=== PATIENT | female | born 2000 | race Caucasian/White ===

== ENCOUNTER 2020-10-09 04:21 | Emergency (ER) | payer BC, SELFPAY ==
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
[2020-10-09 04:28] VITALS: BP 124/92; PULSE 83; RESP 16; TEMP 36.6; O2SAT 98
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
--- NOTE | 2020-10-09 04:58 | PC.NURSE ---
ISP here to speak with patient. DUI kit drawn per their request and patients consent per protocol.
[2020-10-09 05:32] LABS: Chloride 110 mmol/L (98-107)
--- NOTE | 2020-10-09 05:35 | PC.NURSE ---
[email or web address]
[2020-10-09 05:51] LABS: Anion Gap 11 mmol/L (8-16); Blood Urea Nitrogen 6 mg/dL (7-17); Calcium 9.1 mg/dL (8.4-10.2); Carbon Dioxide 21 mmol/L (22-30); Estimated CRCL calculation 108 ml/min; Estimated Glomerular Filt Rate > 60; Glucose 98 mg/dL (65-105); Potassium 3.7 mmol/L (3.4-5.0); Sodium 142 mmol/L (137-145)
[2020-10-09 05:58] LABS: Ethanol 166 mg/dL (<10)
--- NOTE | 2020-10-09 05:59 | PC.NURSE ---
tried to call report to let them know patient would be returning, however the phone just rings and finally hangs up with a busy signal.
[2020-10-09] MEDS: ACETAMINOPHEN 325 MG TABLET 650 MG PO (06:02)
[2020-10-09] MEDS: KETOROLAC 30 MG/ML VIAL (*BKC) IV PUSH (06:19)
[2020-10-09 06:37] VITALS: BP 115/73; PULSE 83; RESP 16; TEMP 36.6; O2SAT 98
== END 2020-10-09 06:38 | disposition home or self-care (01) ==
PROVIDERS: Emergency Provider Emergency Medicine; PCP Internal Medicine
DX: S39.012A Strain of muscle, fascia and tendon of lower back, initial encounter (principal); S46.912A Strain of unspecified muscle, fascia and tendon at shoulder and upper arm level, left arm, initial encounter; V43.52XA Car driver injured in collision with other type car in traffic accident, initial encounter
CPT/HCPCS: 36415; 70450; 71260; 72125; 73080; 74177; 80048; 80307; 81025; 96374; 99284; A9270; J1885; Q9967

== ENCOUNTER 2024-03-15 12:37 | Outpatient (CLI) | payer BC, SELFPAY ==
[2024-03-15 13:04] LABS: Basophils Absolute Auto 0.1 K/mm3 (0.0-0.1); Basophils Percent Auto 0.9 % (0.2-1.2); Eosinophils Absolute Auto 0.1 K/mm3 (0-0.3); Eosinophils Percent Auto 1.9 % (0-4.4); Hematocrit 39.6 % (37.0-47.0); Hemoglobin 13.4 g/dL (12.0-15.0); Immature Granulocyte Absolute 0.03 K/mm3 (0.00-0.031); Immature Granulocyte Percent A 0.4 % (0-0.5); Lymphocytes Absolute Auto 1.61 K/mm3 (0.9-3.2); Lymphocytes Percent Auto 23.4 % (18.3-44.2); Mean Corpuscular HGB Conc 33.8 g/dl (32-36); Mean Corpuscular Hemoglobin 31.5 pg (26-34); Mean Corpuscular Volume 93.2 fl (80-100); Mean Platelet Volume 9.5 fl (7.4-10.4); Monocytes Absolute Auto 0.7 K/mm3 (0.1-0.6); Monocytes Percent Auto 9.6 % (2.6-8.5); Neutrophils Absolute Auto 4.4 K/mm3 (1.3-6.7); Neutrophils Percent Auto 63.8 % (45.5-73.1); Platelet Count Result 222 k/mm3 (150-375); Red Blood Count 4.25 M/mm3 (4.2-5.4); Red Cell Distribution Width 14.4 % (11.5-14.5); White Blood Count 6.9 K/mm3 (4.5-10.0)
[2024-03-15 13:07] LABS: Appearance Urine Clear (Clear); Bilirubin Urine Negative (Negative); Blood Urine Negative (Negative); Color Urine Yellow (Yellow); Glucose Urine UA Negative (Negative); Ketones Urine Negative (Negative); Leukocyte Esterase Ur Negative LEU/UL (Negative); Nitrate Urine Negative (Negative); Protein Urine Negative (Negative); Specific Grav Ur 1.018 (1.001-1.035)
[2024-03-15 13:17] LABS: Add Urine Microscopic? NO
[2024-03-15 14:04] LABS: HIV 1/2 Ab P24 Ag Result Negative (Negative)
[2024-03-15 14:11] LABS: Hepatitis B Surface Antigen Negative (Negative); Rubella IgG Antibody 8.4 IU/ML
[2024-03-15 14:27] LABS: Hepatitis C Virus Antibody Negative (Negative)
[2024-03-16 11:18] LABS: Rapid Plasma Reagin Non-Reactive (NonReactive)
== END 2024-03-15 12:38 | disposition home or self-care (01) ==
LOC: ANHLAB 12:39
PROVIDERS: PCP Internal Medicine; Visit Provider Nurse Practitioner Obstetrics & Gynecology
DX: Z34.90 Encounter for supervision of normal pregnancy, unspecified, unspecified trimester (principal)
CPT/HCPCS: 36415; 81003; 85025; 86592; 86703; 86762; 86787; 86803; 86850; 86900; 86901; 87086; 87340; G0432

== ENCOUNTER 2024-05-09 11:14 | Outpatient (CLI) | payer BC, MEDICAID, SELFPAY ==
[2024-05-09 12:45] LABS: Basophils Percent Auto 0.3 % (0.2-1.2); Eosinophils Absolute Auto 0.2 K/mm3 (0-0.3); Hematocrit 35.5 % (37.0-47.0); Hemoglobin 11.7 g/dL (12.0-15.0); Immature Granulocyte Absolute 0.04 K/mm3 (0.00-0.031); Immature Granulocyte Percent A 0.5 % (0-0.5); Lymphocytes Absolute Auto 1.27 K/mm3 (0.9-3.2); Lymphocytes Percent Auto 16.9 % (18.3-44.2); Mean Corpuscular Hemoglobin 31.5 pg (26-34); Mean Corpuscular Volume 95.4 fl (80-100); Mean Platelet Volume 9.9 fl (7.4-10.4); Monocytes Absolute Auto 0.7 K/mm3 (0.1-0.6); Monocytes Percent Auto 9.5 % (2.6-8.5); Neutrophils Absolute Auto 5.3 K/mm3 (1.3-6.7); Neutrophils Percent Auto 70.8 % (45.5-73.1); Platelet Count Result 208 k/mm3 (150-375); Red Blood Count 3.72 M/mm3 (4.2-5.4); Red Cell Distribution Width 13.3 % (11.5-14.5); White Blood Count 7.5 K/mm3 (4.5-10.0)
[2024-05-09 12:57] LABS: Glucose 1 Hour PP 50gm Dose 82 mg/dL
== END 2024-05-09 11:15 | disposition home or self-care (01) ==
LOC: ANHLAB 11:17
PROVIDERS: PCP Internal Medicine; Visit Provider Nurse Practitioner Obstetrics & Gynecology
DX: Z34.90 Encounter for supervision of normal pregnancy, unspecified, unspecified trimester (principal)
CPT/HCPCS: 36415; 82947; 85025

== ENCOUNTER 2024-06-20 09:03 | Outpatient (CLI) | payer BC, MEDICAID, SELFPAY ==
[2024-06-20 09:28] LABS: Basophils Percent Auto 0.4 % (0.2-1.2); Eosinophils Absolute Auto 0.1 K/mm3 (0-0.3); Eosinophils Percent Auto 1.2 % (0-4.4); Hematocrit 35.1 % (37.0-47.0); Hemoglobin 11.7 g/dL (12.0-15.0); Immature Granulocyte Absolute 0.05 K/mm3 (0.00-0.031); Immature Granulocyte Percent A 0.5 % (0-0.5); Lymphocytes Absolute Auto 1.78 K/mm3 (0.9-3.2); Lymphocytes Percent Auto 17.2 % (18.3-44.2); Mean Corpuscular HGB Conc 33.3 g/dl (32-36); Mean Corpuscular Hemoglobin 30.2 pg (26-34); Mean Corpuscular Volume 90.7 fl (80-100); Mean Platelet Volume 10.2 fl (7.4-10.4); Monocytes Absolute Auto 0.8 K/mm3 (0.1-0.6); Neutrophils Absolute Auto 7.5 K/mm3 (1.3-6.7); Neutrophils Percent Auto 72.7 % (45.5-73.1); Platelet Count Result 193 k/mm3 (150-375); Red Blood Count 3.87 M/mm3 (4.2-5.4); Red Cell Distribution Width 13.6 % (11.5-14.5); White Blood Count 10.3 K/mm3 (4.5-10.0)
[2024-06-20 17:32] LABS: HIV 1/2 Ab P24 Ag Result Negative (Negative)
[2024-06-21 10:21] LABS: Rapid Plasma Reagin Non-Reactive (NonReactive)
== END 2024-06-20 09:04 | disposition home or self-care (01) ==
LOC: ANHLAB 09:08
PROVIDERS: PCP Internal Medicine; Visit Provider Nurse Practitioner Obstetrics & Gynecology
DX: Z34.90 Encounter for supervision of normal pregnancy, unspecified, unspecified trimester (principal)
CPT/HCPCS: 36415; 85025; 86592; 86703; G0432

== ENCOUNTER 2024-08-09 07:58 | Inpatient (IN) | payer BC, MEDICAID, SELFPAY ==
[2024-08-09] VITALS (129 sets, daily range): BP systolic 109–156; BP diastolic 38–116; PULSE 64–173; RESP 18; TEMP 36.5–37; O2SAT 93–100
[2024-08-09 08:51] LABS: Basophils Absolute Auto 0.1 K/mm3 (0.0-0.1); Basophils Percent Auto 0.6 % (0.2-1.2); Eosinophils Absolute Auto 0.1 K/mm3 (0-0.3); Eosinophils Percent Auto 0.8 % (0-4.4); Hematocrit 35.9 % (37.0-47.0); Immature Granulocyte Absolute 0.06 K/mm3 (0.00-0.031); Immature Granulocyte Percent A 0.5 % (0-0.5); Lymphocytes Absolute Auto 3.55 K/mm3 (0.9-3.2); Lymphocytes Percent Auto 30.8 % (18.3-44.2); Mean Corpuscular HGB Conc 33.4 g/dl (32-36); Mean Corpuscular Hemoglobin 29.7 pg (26-34); Mean Corpuscular Volume 88.9 fl (80-100); Mean Platelet Volume 10.8 fl (7.4-10.4); Monocytes Absolute Auto 0.7 K/mm3 (0.1-0.6); Neutrophils Absolute Auto 7.1 K/mm3 (1.3-6.7); Neutrophils Percent Auto 61.3 % (45.5-73.1); Platelet Count Result 213 k/mm3 (150-375); Red Blood Count 4.04 M/mm3 (4.2-5.4); White Blood Count 11.5 K/mm3 (4.5-10.0)
[2024-08-09] MEDS: LACTATED RINGERS 1,000 ML 125 ML IV CONT ×3 (09:03→10:56)
--- NOTE | 2024-08-09 09:36 | WPDANESEPP ---
Anes - Eval Pre Procedure Procedure: Labor Epidural Date/Time: 08/09/24 09:36 Surgeon: Hailey Preop Diagnosis: Pain during labor Pre Op Diagnosis: Labor Patient Data Age: 24 Gender: F Height: Weight: Last Vital Signs Pulse 109 H 08/09/24 09:30 BP 156/96 H 08/09/24 09:30 Allergies Allergy/AdvReac Type Severity Reaction Status Date / Time No Known Drug Allergies AdvReac na Verified 08/08/24 14:59 Home Medications Medication Instructions Recorded Confirmed Type vit no.116-iron 28 1 cap PO DAILY #90 caps 06/08/24 07/31/24 Rx mg-folic acid 800 mcg-dha 200 mg capsule ( Formula-DHA) Laboratory Tests 08/09/24 08:39 WBC 11.5 H K/mm3 (4.5-10.0) RBC 4.04 L M/mm3 (4.2-5.4) Hgb 12.0 g/dL (12.0-15.0) Hct 35.9 L % (37.0-47.0) MCV 88.9 fl (80-100) MCH 29.7 pg (26-34) MCHC 33.4 g/dl (32-36) RDW 16.0 H % (11.5-14.5) Plt Count 213 k/mm3 (150-375) MPV 10.8 H fl (7.4-10.4) Immature Gran % (Auto) 0.5 % (0-0.5) Neut % (Auto) 61.3 % (45.5-73.1) Lymph % (Auto) 30.8 % (18.3-44.2) [place] % (Auto) 6.0 % (2.6-8.5) Eos % (Auto) 0.8 % (0-4.4) Baso % (Auto) 0.6 % (0.2-1.2) Lymph # (Auto) 3.55 H K/mm3 (0.9-3.2) [place] # (Auto) 0.7 H K/mm3 (0.1-0.6) Eos # (Auto) 0.1 K/mm3 (0-0.3) Baso # (Auto) 0.1 K/mm3 (0.0-0.1) Abs Immat Gran (auto) 0.06 H K/mm3 (0.00-0.031) Absolute Neuts (auto) 7.1 H K/mm3 (1.3-6.7) Absolute Nucleated RBC 0.000 K/mm3 (0.0-0.012) Nucleated RBC % 0.0 % (0.0-0.2) RPR Pending HIV 1&2 Ab/P24 Ag 4thGn Pending Blood Type A Positive Antibody Screen Pending Patient hx anesthesia problems: none Family hx anesthesia problems: none Results Review: All pre-operative results and documents have been reviewed as part of the pre-operative evaluation. COUNT INCLUDES THE [facility] Past Medical History Medical History Personal history of congenital hip dysplasia Family History Family History Father Asthma Mother Asthma Grandparent Depression Breast cancer Social History Social History Smoking status: Never smoker Alcohol intake: never Substance use: never Spiritual care concerns: No Exam Day of Procedure 08/09/24 09:36 Patient weight: normal Heart: regular rate and rhythm Lungs: normal air movement Airway: Mallampati scale class II Neurological: alert and oriented
[2024-08-09 09:40] LABS: HIV 1/2 Ab P24 Ag Result Negative (Negative)
[2024-08-09 10:01] LABS: Rapid Plasma Reagin Non-Reactive (NonReactive)
[2024-08-09] MEDS: OXYTOCIN 30 UNITS/NS 500 ML 30 UNITS/500 ML BAG IV CONT (15:45)
[2024-08-09] MEDS: ONDANSETRON INJ 4 MG/2 ML VIAL IV PUSH (17:05)
[2024-08-09] MEDS: OXYTOCIN 30 UNITS/NS 500 ML 30 UNITS/500 ML BAG 125 UNITS IV CONT (17:11)
--- NOTE | 2024-08-09 18:56 | OBPPTRN ---
Patient transferred to post room #281 via w/c. Support person present. Oriented to unit, room, information board, rooming in, admission packet and security measures. Patient verbalizes understanding.
[2024-08-10] VITALS: BP 125/69; PULSE 75; RESP 18; TEMP 36.9
[2024-08-10 05:18] LABS: Hematocrit 31.8 % (37.0-47.0); Hemoglobin 10.6 g/dL (12.0-15.0)
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
--- NOTE | 2024-08-10 07:08 | PM.OBPRVD ---
OB - Vaginal Delivery Note Procedure Delivery date: 08/10/24 Delivery augmentation: Pitocin Route of delivery: Episiotomy description: None Laceration Description: Labial (inner labial and small vaginal at introitus, no suture needed) Specimen: No Quantitative Blood Loss (ml): 150 Anesthesia type: Epidural Disposition: Floor Complications: No immediate complications Narrative: She was admitted in labor. She had epidural placed on request. She continued to progress in labor. Labor slowed at 9cm, she was examined and was OP, Pitocin was started and she was repositioned and then had urge to push after 10 minuters. She was complete. She pushed several times and delivered a female infant. Infant vigorously crying on delivery and nose and mouth suctioned on perineum. The shoulder and the rest of delivered with patient in Sara position. Infant placed on maternal abdomen. Delayed cord clamped. Placenta delivered spontaneous and intact. She sustained small bilateral labial superior inner minora lacerations , and small at introitus, no suture needed. She tolerated procedure well. [place] Baby Date of : 08/09/24 Time of : 16:35 Gestational Age by Date: 39 gender: Female Weight (pounds): 7 Weight (ounces): 3 presentation: vertex Placenta delivery description: Spontaneous Cord Vessel Description: 3 Vessels score one minute: 8 score five minutes: 9
[2024-08-10 07:30] VITALS: BP 122/73; PULSE 80; RESP 16; TEMP 37.3; O2SAT 100
--- NOTE | 2024-08-10 08:10 | PC.NURSE ---
Introductions were made, then consulted with patient to assess needs related to . Mother led the conversation with her?plans to feed?her and the?experience so far. Pumping was initiated overnight because infant was too sleepy to latch. She was able to pump 15cc of colostrum and give this to infant with her last feeding. Mother has inverted and flat nipples so a nipple shield was also introduced overnight. Mother is using her own pump from home and is currently in her correct size flange. She denies pain or discomfort when pumping. Encouraged understanding of the benefits of skin to skin (demonstrating unwrapping infant and placing upright on her chest), stimulating with massage touch, changing positions to encourage wakefulness, how to watch for early feeding cues, responsive feeding, feeding on demand (aiming for 8-12 times in 24 hours, about every 2-3 hours), milk production, building/maintaining a milk supply, duration of feeding, signs of adequate intake/output and how to record on the feeding sheet. Mother works well with her and needs only minimal assistance with positioning infant for feedings. Reviewed positioning and ear, shoulder, hip alignment, supporting the breast to facilitate a deep latch, asymmetrical latch (off-center), leading with the chin with a big, open, wide gape and body close to mother. latched to the [left] breast in [football] position with nipple shield in place. would only suckle 2-3 times and push the nipple shield out of her mouth. Mother is able to redirect infant to the breast and relatch her. The 2-3 suckles and pushing out the nipple shield happened a few times while I was observing this feeding. Infant then fell asleep. Encouraged mother to wake and continue attempting to nurse . Mother will pump and feed if she is unable to maintain a latch and has stated that she doesnt care how the baby eats as long as she is fed . Communication board was updated and mother knows to call if she needs further education or any assistance with feeding . Reported to the Primary RN.
[2024-08-10] MEDS: DOCUSATE SODIUM 100 MG CAPSULE PO (08:27)
[2024-08-10] MEDS: MULTIVIT/MIN/PREN/FOL AC/IRON TABLET 1 TAB PO (08:27)
[2024-08-10] MEDS: IBUPROFEN 600 MG TABLET PO ×2 (08:27→19:05)
--- NOTE | 2024-08-10 11:07 | PM.OBPNVD ---
OB - PN: Subj Subjective Date/time seen: 08/10/24 0800 Patient comments: pain well controlled, tolerating diet and other (Decreasing lochia.) baby status: doing well and nursing well [place] feeding status: breast and bottle feeding Narrative: Doing well. taking motrin as needed for pain. Bleeding has been very light. at bedside- working with nipple shield. doing. Sleepy while trying to nurse. OB - PN: Obj Data Labs 08/10/24 05:11 Labs: Laboratory Results - last 24 hr 08/10/24 05:11 Hgb 10.6 L Hct 31.8 L OB - PN A/P Assessment and Plan (1) Labor without complication: Code(s): O80 - Encounter for full-term uncomplicated delivery Status: Acute Plan routine pp care. continue . motrin as needed for pain. Plan day: 1 Plan: routine care Time Spent With Patient Time: Total time spent is greater than 50% in coordination of care (as documented) at patient's floor/unit and/or counseling patient: Review of Systems Constitutional: Constitutional: Reports no additional constitutional complaints Gastrointestinal: Gastrointestinal: Reports no additional gastrointestinal complaints Genitourinary: Genitourinary: Reports no additional female genitourinary complaints Neurologic: Reports system reviewed and no additional complaints, except as documented Exam Const: General: cooperative, healthy appearing, comfortable and no acute distress HENMT: Head: normal to inspection Eyes: General: appearance normal, both eyes and all related structures Chest: Breast/axilla inspection: normal inspection of the breasts Resp: Effort & Inspection: normal respiratory effort and able to speak in complete sentences Auscultation: clear to auscultation bilaterally Cardio: Rate: regular rate Rhythm: regular rhythm GI: Inspection: normal to inspection : Other: fundus firm and below umbilicus perineum intact light lochia Skin: General skin exam: normal color and no rashes or lesions noted Neuro: General: oriented to person, oriented to place and oriented to time Extrem: General: capillary refill normal and no calf tenderness Psych: Affect: normal affect Other: Abd: fundus firm below umbilicus, nontender Perineum: healing Ext: nontender
[2024-08-10 12:00] VITALS: BP 121/70; PULSE 75; RESP 16; TEMP 37; O2SAT 99
--- NOTE | 2024-08-10 15:03 | PM.OBDSVD ---
DS: Admitting Diagnosis Discharge Date 08/11/24 Admitting Diagnosis Active labor DS: Discharge Diagnosis Discharge Diagnosis (1) Labor without complication: Code(s): O80 - Encounter for full-term uncomplicated delivery Status: Acute (2) Vaginal delivery: Code(s): O80 - Encounter for full-term uncomplicated delivery Status: Acute OB - DS: Summary Hospital Course Hospital Course: She was admitted in active labor. She had an uncomplicated vaginal delivery. She did well . She had adequate pain control and ambulating well prior to delivery. Baby girl was doing well. OB Procedures : Ultrasound OB Procedures Intrapartum: Spontaneous Vag Delivery OB Procedures: : None Peripartum Data Delivery Method: Natural Vaginal Laceration Description: Labial (inner labial and small vaginal at introitus, no suture needed) Episiotomy description: None complications: none Status at Discharge Functional status at discharge: independent ambulation Time Spent with Patient Time attestation: Total time spent providing and/or coordinating discharge services: Exam Const: General: cooperative Orientation/consciousness: oriented to person, oriented to place and oriented to time HENMT: Face/Nose/Sinus: Normal external nose present Eyes: General: appearance normal, both eyes and all related structures Resp: Effort & Inspection: normal respiratory effort GI: Inspection: normal to inspection Skin: General skin exam: normal color Neuro: General: oriented to person, oriented to place and oriented to time Extrem: General: normal to inspection and no calf tenderness Psych: Appearance: grossly normal Mental Status: mental status grossly normal DS: Data Data Completed and Pending Labs on day of discharge: Labs from last 24 hours 08/10/24 05:11 Hgb 10.6 L Hct 31.8 L Discharge Plan Discharge Attending physician on discharge: Vlad Hart Consulting providers: Garrick Denis Discharging Clinician: Vlad Hart Patient Disposition: Home, Self-Care Activity: may shower, no driving and pelvic rest Diet: regular Patient Instructions: Antibiotic Form Stand Alone Forms: General Discharge Information Follow-up/Referrals: Vlad Hart MD [Physician] - 4 Weeks (Call for appointment.) Discharge Medications: No Action Formula-DHA 28 mg-800 mcg- 200 mg capsule 1 cap PO DAILY Qty: 90 1RF Date of admission: 08/09/24 07:58 Primary Care Provider: PHYSICIAN NOT ON STAFF,NONSTAFF Admitting Provider: Vlad Hart Attending physician on admission: Vlad Hart Condition: Stable
[2024-08-10 19:00] VITALS: BP 136/82; PULSE 80; RESP 18; TEMP 36.8; O2SAT 100
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
[2024-08-11 07:30] VITALS: BP 140/83; PULSE 70; RESP 16; TEMP 36.6; O2SAT 100
[2024-08-11] MEDS: MULTIVIT/MIN/PREN/FOL AC/IRON TABLET 1 TAB PO (07:47)
[2024-08-11] MEDS: MEASLES,MUMPS,RUBELLA VACCINE 0.5 ML VIAL SUB-Q (07:48)
--- NOTE | 2024-08-11 08:56 | PM.OBDSVD ---
DS: Admitting Diagnosis Discharge Date 08/11/2024 Admitting Diagnosis DS: Discharge Diagnosis Discharge Diagnosis (1) , delivered: Code(s): O80 - Encounter for full-term uncomplicated delivery Status: Acute OB - DS: Summary Hospital Course Hospital Course: She was admitted in active labor. She had an uncomplicated vaginal delivery. She did well . She had adequate pain control and ambulating well prior to delivery. Baby girl was doing well. OB Procedures : None OB Procedures Intrapartum: Spontaneous Vag Delivery OB Procedures: : None Peripartum Data Laceration Description: Labial (inner labial and small vaginal at introitus, no suture needed) Episiotomy description: None Time Spent with Patient Time attestation: Total time spent providing and/or coordinating discharge services: Discharge Plan Discharge Attending physician on discharge: Vlad Hart Consulting providers: Garrick Denis Discharging Clinician: Vlad Hart Patient Disposition: Home, Self-Care Activity: may shower, no driving and pelvic rest Diet: regular Patient Instructions: Antibiotic Form Stand Alone Forms: General Discharge Information Follow-up/Referrals: Vlad Hart MD [Physician] - 4 Weeks (Call for appointment.) Discharge Medications: New ibuprofen 600 mg Tablet 600 mg PO Q6H PRN (Reason: Cramping) Qty: 30 0RF Continued Formula-DHA 28 mg-800 mcg- 200 mg capsule 1 cap PO DAILY Qty: 90 1RF Date of admission: 08/09/24 07:58 Primary Care Provider: PHYSICIAN NOT ON STAFF,NONSTAFF Admitting Provider: Vlad Hart Attending physician on admission: Vlad Hart Condition: Stable
--- NOTE | 2024-08-11 09:31 | PC.NURSE ---
Patient instructed on viewing the discharge video Mother & Baby Care, The First Two Weeks . Patient was given the opportunity and encouraged to ask questions. Patient verbalized understanding of information shared and has been given the mother/baby guide for home reference.
--- NOTE | 2024-08-11 09:40 | PC.NURSE ---
Mother is attempting to put to breast with each feeding, her attempts have been unsuccessful but she does not appear to be discouraged and explains that she will continue trying at each feeding. Mother is pumping and expressing 10-15cc at each pumping session and able to feed this to infant. Mother is satisfied with her plan to pump and feed infant and continue her attempts to latch . Communication board updated.
[2024-08-11 11:45] VITALS: BP 142/88; PULSE 88
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
[2024-08-13 08:30] VITALS: BP 129/76; PULSE 81; RESP 18; TEMP 36.7; O2SAT 100
== END 2024-08-11 16:48 | disposition home or self-care (01) | DRG 807 ==
LOC: ANHOB2 08-11 09:45 → ANHLDR 08-13 13:49 → ANHOB2 08-13 13:49
PROVIDERS: Admitting Provider Obstetrics & Gynecology; Visit Provider Obstetrics & Gynecology
DX: O70.0 First degree perineal laceration during delivery (principal); Z37.0 Single live birth; Z3A.39 39 weeks gestation of pregnancy
CPT/HCPCS: 36415; 85014; 85018; 85025; 86592; 86703; 86850; 86900; 86901; 90710; A9270; G0432; J2405; J2590; J2795; J7120